=== PATIENT | female | born 1995 | race Caucasian/White ===

== ENCOUNTER 2023-07-18 05:28 | Inpatient (IN) ==
--- NOTE | 2023-07-07 16:00 | Anesthesiology Consultation ---
Date of Service July 07, 2023 Assessment & Plan (1) Encounter for pre-operative examination: Infectious disease screening: Per assessment on 07/07/23: No known infectious disease contacts or current infectious disease symptoms. Patient was Covid positive 04/26/23 (home test)- congestion, resolved. Pt can proceed as scheduled without additional preop Covid testing or additional Covid contact precautions per protocol. Chart Review Chart Review: entry level programmer initiated History Surgery Operation Date: 07/18/23 07:30 Proposed Procedures p Section in LD (Delivery of Baby Through Abdominal Incision) - Michelle Davila MD, FACOG Height/Weight Height: 5 ft 5 in Weight: 124.738 kg Allergies Allergy/AdvReac Type Severity Reaction Status Date / Time No Known Allergies Allergy Verified 07/07/23 15:32 Medications Home Medications Medication Instructions Recorded Confirmed Last Taken tnevuduj-owg-Jh-FA 1 dose PO QPM 12/16/22 07/07/23 Unknown [] Breast Pump #1 ea 05/20/23 07/03/23 Unknown ferrous sulfate 325 mg (65 mg 325 mg PO QAM 05/27/23 07/07/23 Unknown iron) tablet (FeroSul) calcium carbonate 300 mg (750 mg) 300 mg PO DAILY PRN gerd. 07/07/23 07/07/23 Unknown chewable tablet (Tums) Past Medical History Medical History Anxiety and depression hx GERD (gastroesophageal reflux disease) History of COVID-19 04/26/23 (home test)- congestion, resolved Human papilloma virus MRSA (methicillin resistant Staphylococcus aureus) hx Past Family History Family History Aunt Breast cancer Mother Hypertension A-fib Brother Hypertension Pacemaker Father A-fib Denies family history of Ovarian cancer Colorectal cancer Past Surgical History Surgical History History of esophagogastroduodenoscopy (EGD) S/P section S/P cholecystectomy S/P dilatation and curettage S/P sinus surgery S/P tonsillectomy and adenoidectomy S/P wisdom tooth extraction Social History Smoking Status: Never smoker Do You Dip or Chew Tobacco: No Hx Alcohol Use: No Hx Substance Use: No substance use type: does not use
--- NOTE | 2023-07-17 12:12 | History & Physical Report ---
Date of Service July 17, 2023 Assessment & Plan (1) Previous delivery affecting , antepartum: (2) Two vessel cord: Plan Will be admitted on 07/17 for planned repeat c/s. Declines tubal. Aware of preop, postop instructions and course. Answered questions to best of my ability. Consent form reviewed and signed. Labs on admission. IV and Abx ordered. Will need MMR PP. History of Present Illness Chief Complaint: planned c/s Primary Care Provider: Desi Zamudio 27yo at 39 0/7 wks ega on day of her admission for planned repeat c/s with prior history of c/s. Denies rom, vb. +FM. No ctx. pyelectasis was noted initially but resolved at 30wks. PNC c/b 1. obesity 2. 2VC 3. Prior c/s 4. Needs MMR PP PNL RH pos,Rubella, equiv, GBS neg OBH: c/sx1, sab x 1 GYNH: nl paps no stds Allergies Allergy/AdvReac Type Severity Reaction Status Date / Time No Known Allergies Allergy Verified 07/17/23 09:53 Home Medications Medication Instructions Recorded Confirmed Type lplvqgun-[id number]-Ld-FA 1 dose PO QPM 12/16/22 07/17/23 History [] Breast Pump #1 ea 05/20/23 07/17/23 Rx ferrous sulfate 325 mg (65 mg 325 mg PO QAM 05/27/23 07/17/23 History iron) tablet (FeroSul) calcium carbonate 300 mg (750 mg) 300 mg PO DAILY PRN gerd. 07/07/23 07/17/23 History chewable tablet (Tums) Patient History Medical History Anxiety and depression hx GERD (gastroesophageal reflux disease) History of COVID-19 04/26/23 (home test)- congestion, resolved Human papilloma virus MRSA (methicillin resistant Staphylococcus aureus) hx Surgical History History of esophagogastroduodenoscopy (EGD) S/P section S/P cholecystectomy S/P dilatation and curettage S/P sinus surgery S/P tonsillectomy and adenoidectomy S/P wisdom tooth extraction Family History Aunt Breast cancer Mother Hypertension A-fib Brother Hypertension Pacemaker Father A-fib Denies family history of Ovarian cancer Colorectal cancer Social History Smoking Status: Never smoker Second Hand Exposure: No; Do You Dip or Chew Tobacco: No; Hx Alcohol Use: No Hx Substance Use: No Preferred Language: Sami Communication Ability: Effective Maintenance Tech Required: No Beliefs That Will Affect Care: None marital status: Single marital status details: foyasmine Vasquez (35) [phone] Current Living Situation: Family and Significant Other Current Living Situation Comment: lives with fob, son, dogs, cat-son & fob changing litter current occupational status: employed 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
[2023-07-18] MEDS: LACTATED RINGER'S 1,000 ML IV SCH (05:50)
[2023-07-18 06:27] LABS: Basophils # (auto) 0.03 K/uL (0.00-0.20); Basophils % (auto) 0.4 %; Eosinophils # (auto) 0.25 K/uL (0.00-0.50); Eosinophils % (auto) 3.1 %; Immature Granulocytes # (auto) 0.03 K/uL (0.01-0.20); Immature Granulocytes % (auto) 0.4 %; Lymphocytes # (auto) 1.85 K/uL (1.20-3.40); Lymphocytes % (auto) 22.7 %; Mean Corpuscular Hemoglobin 29.8 pg (25.0-34.0); Mean Corpuscular Hgb Conc 33.3 g/dL (32.0-36.0); Mean Corpuscular Volume 89.3 fL (80.0-100.0); Mean Platelet Volume 9.9 fL (9.4-12.4); Monocytes # (auto) 0.59 K/uL (0.11-0.59); Monocytes % (auto) 7.2 %; Neutrophils # (auto) 5.39 K/uL (1.40-6.50); Neutrophils % (auto) 66.2 %; Platelet Count 206 K/uL (130-400); RDW Coefficient of Variation 13.2 % (11.5-14.5); RDW Standard Deviation 42.9 fL (36.4-46.3); Red Blood Count 4.03 M/uL (4.20-5.40); White Blood Count 8.14 K/ul (4.8-10.8)
[2023-07-18] MEDS ORDERED: SODIUM CHLORIDE 0.9% 250 ML IV PRN (06:43)
[2023-07-18] MEDS ORDERED: PHENYLEPHRINE HCL 10 MG/ML VIAL ONE (07:00)
[2023-07-18] MEDS ORDERED: ONDANSETRON INJ 2 MG/ML 2 ML VIAL ONE (07:00)
[2023-07-18] MEDS ORDERED: fentaNYL citrate PF 100 MCG/2 ML VIAL ONE (07:00)
[2023-07-18] MEDS ORDERED: MoRPHine SULFATE PF 1 MG/ML 10 ML AMP/VIAL ONE (07:00)
[2023-07-18] MEDS ORDERED: KETOROLAC 30 MG/ML VIAL ONE (07:00)
[2023-07-18] MEDS ORDERED: OXYTOCIN 10 UNITS/ML VIAL ONE (07:00)
[2023-07-18] MEDS: ceFAZolin 3,000 MG/72.5 ML BAG IV SCH (07:22)
--- NOTE | 2023-07-18 07:23 | History & Physical Bridge Note ---
Date of Service July 18, 2023 History & Physical Bridge Note I have examined the patient, reviewed the History & Physical and in the interval since the performance of the History & Physical I have noted the following changes of clinical significance: no changes noted
[2023-07-18] MEDS: CITRIC ACID/SODIUM CITRATE 15 ML UDC PO SCH (07:27)
[2023-07-18] MEDS ORDERED: NALOXONE HCL 1 MG in SODIUM CHLORIDE 0.9% 1,000 ML IV PRN (08:00)
[2023-07-18] MEDS ORDERED: NALOXONE HCL 0.4 MG/1 ML VIAL/CARP IV PRN (08:00)
[2023-07-18] MEDS ORDERED: MoRPHine SULFATE PF 1 MG/ML 10 ML AMP/VIAL INT SPINAL ONE (08:00)
[2023-07-18] MEDS ORDERED: ePHEDrine sulfate 50 MG/ML AMP IV PRN (08:00)
[2023-07-18] MEDS ORDERED: NALBUPHINE HCL 5 MG in SYRINGE 0 ML IV PRN (08:00)
[2023-07-18] MEDS ORDERED: diphenhydrAMINE 50 MG/ML VIAL IV PRN (08:00)
[2023-07-18] MEDS ORDERED: LACTATED RINGER'S 500 ML IV PRN (08:00)
[2023-07-18] MEDS ORDERED: NALOXONE HCL 0.08 MG in SYRINGE 1.8 ML IV PRN (08:00)
[2023-07-18] MEDS ORDERED: DC INTRASPINAL MORPHINE SCH (08:00)
[2023-07-18] MEDS ORDERED: NO NARCOTICS OR SEDATIVES SCH (08:00)
[2023-07-18] MEDS ORDERED: SODIUM CHLORIDE 0.9% 1,000 ML IV SCH (08:00)
[2023-07-18] MEDS ORDERED: HYDROmorphone INJ 0.5 MG/0.5 ML SYR IV PRN (08:00)
[2023-07-18] MEDS ORDERED: PROMETHAZINE HCL 6.25 MG in SODIUM CHLORIDE 0.9% 50 ML IV PRN (08:00)
[2023-07-18] MEDS ORDERED: ACETAMINOPHEN 1,000 MG/100 ML VIAL IV PRN (08:00)
[2023-07-18] MEDS ORDERED: ePHEDrine sulfate 50 MG/5 ML SYR ONE (08:03)
[2023-07-18] MEDS: CARBOPROST TROMETHAMINE 250 MCG/ML AMPUL IM ONE (08:10)
[2023-07-18] MEDS ORDERED: CARBOPROST TROMETHAMINE 250 MCG/ML AMPUL ONE (08:11)
--- NOTE | 2023-07-18 08:39 | Operative Report ---
PG Post Operative Report Pre & Post Diagnosis Operation Date: 07/18/23 07:30 Pre-Op Diagnosis: Previous Section, Desires Repeat section 39 weeks EGA Two Vessel Cord Obesity Post-Op Diagnosis: Previous Section, Desires Repeat section 39 weeks EGA Two Vessel Cord Obesity I identified the patient and participated in the time-out.: Yes Procedure Operation Date: 07/18/23 07:30 Actual Procedures p Repeat Low Transverse Section in LD (Delivery of Baby Through Abdominal Incision); Live female child at 0804(Bilateral) - Michelle Davila MD, FACOG Surgeon Michelle Davila MD, FACOG Veterinary Laboratory Technician Beata Estimated Blood Loss 600 Findings Consistent with Post-Op Diagnosis (viable female infant, apgars pending. omental adhesions encountered. Normal uterus and normal bilateral tubes and ovaries. ) Fluids 1200 Specimens cord blood Drains alarcon Anesthesia Type Spinal Complications none Disposition Accompanied Patient To Recovery: No Disposition: L&D Indications 27yo at 39wks for planned repeat c/s. Description of Procedure The patient was taken to the operating room and identified. After adequate anesthesia was obtained, she was placed in the supine position with a leftward tilt on the operating table and prepped and draped in the usual sterile fashion. A alarcon catheter had already been placed. The knife was used to create a Pfannensteil skin incision that was carried down to the underlying layer of fasc ia. The fascia was nicked in the midline and this opening was extended laterally using Oshea scissors. Rolanda clamps were placed on the superior and inferior aspect of the fascial incision tenting it upward and the underlying rectus muscles were dissected off the overlying fascia both sharply and bluntly using Oshea scissors. The rectus muscles were bluntly in the midline. The peritoneal cavity was bluntly entered into. This opening was stretched. The bladder blade was placed. The vesicouterine peritoneum was elevated and opened up into and the bladder flap was created digitally and bladder blade was replaced. The knife was used to create a hysterotomy and this opening was stretched. The operators hand was placed through the hysterotomy and the bladder blade was removed. The head was elevated and flexed and with fundal pressure the head was delivered. The shoulders and body were rapidly delivered. The cord was clamped and cut and the 's mouth and nares were bulb suction. The infant was handed off to the awaiting pediatricians. Cord blood was obtained. The placenta was manually expressed. The uterus was exteriorized and cleared of all clots and debris. Dilute IV Pitocin was begun. The uterine tone was improving . The hysterotomy was closed in a running interlocking fashion using 0 Vicryl followed by a second imbricating layer of 0 Vicryl. Small bleeding site at midpoint of hysterotomy reapproximated with 2-0 vicryl in figure of eight fashion. The hysterotomy was hemostatic. The pelvis was irrigated. Still some lack of tone midbody and after bp noted, vial of hemabate injected IM into uterus and tone improved. The uterus was returned to the abdomen. The gutters were cleared of all clots and debris. The hysterotomy was reinspected and noted to be hemostatic. The fascia was then closed in running fashion using 0 Vicryl. The subcutaneous fat was copiously irrigated and reapproximated using 2-0 chromic. The skin was closed in a subcuticular fashion using 4-0 monocryl. At this point the procedure was terminated. The patient was transferred to the recovery room in stable condition. All sponge, lap and needle counts are correct x2. I attest to the content of the Intraoperative Record and any orders documented therein. Any exceptions are noted below. OB Procedure Charges 80519
--- NOTE | 2023-07-18 09:36 | Anesthesiology Progress Note ---
Date of Service July 18, 2023 Anesthesia Post Procedure Vital Signs Vital Signs: Temp Pulse Resp BP Pulse Ox 07/18/23 09:34 109 H 98/54 L 07/18/23 09:33 106 H 96 07/18/23 09:30 111 H 93 07/18/23 09:28 110 H 107/57 L 96 07/18/23 09:24 106 H 94 07/18/23 09:23 108 H 95 07/18/23 09:18 94 07/18/23 09:18 112 H 07/18/23 09:18 112 H 85/59 L 07/18/23 09:15 115 H 94 07/18/23 09:13 114 H 94 07/18/23 09:04 110 H 105/77 07/18/23 09:01 107 H 95 07/18/23 09:00 110 H 92 07/18/23 08:56 110 H 95 07/18/23 08:54 107 H 115/58 L 07/18/23 08:52 100 H 93 07/18/23 08:51 99 H 94 07/18/23 08:46 109 H 96 07/18/23 08:44 104 H 93 07/18/23 08:42 106 H 119/58 L 07/18/23 08:41 107 H 96 07/18/23 05:47 98.2 F 20 07/18/23 05:42 114 H 125/79 Transfer of Care Handoff Completed per policy Notes Mental Status: alert / awake / arousable and participated in evaluation Patient Amnestic to Procedure: No Nausea / Vomiting: adequately controlled Pain: adequately controlled Airway Patency, RR, SpO2: stable & adequate BP & HR: stable & adequate Hydration State: stable & adequate Neuraxial Anesthesia: was administered and sensory block is resolving Anesthetic Complications: no major complications apparent and Pt Satisfied with anesthetic care
[2023-07-18] MEDS ORDERED: LACTATED RINGER'S 1,000 ML IV SCH (09:52)
[2023-07-18] MEDS ORDERED: BENZOCAINE 20% SPRY 85 APPLN/85 GM CAN EXT PRN (09:52)
[2023-07-18] MEDS ORDERED: HYDROCORTISONE ACETATE 25 MG SUPP PR PRN (09:52)
[2023-07-18] MEDS ORDERED: SENNA 8.6 MG TAB PO PRN (09:52)
[2023-07-18] MEDS ORDERED: DIPHTHER/TETAN/PERTUS Vaccine (Tdap, Adol/Adult) 0.5mL IM ONE (09:52)
[2023-07-18] MEDS: OXYTOCIN 20 UNITS/LR 1,002 ML IV SCH (12:04)
[2023-07-18] MEDS: ONDANSETRON INJ 2 MG/ML 2 ML VIAL IV PRN (12:44)
[2023-07-18] MEDS: ACETAMINOPHEN 1,000 MG/100 ML VIAL IV PRN (12:49)
[2023-07-18] MEDS: SIMETHICONE 80 MG CHEW PO SCH (20:29)
[2023-07-18] MEDS: DOCUSATE SODIUM 100 MG CAP PO SCH (20:33)
[2023-07-18] MEDS: KETOROLAC 30 MG/ML VIAL IV PRN (20:33)
[2023-07-19] MEDS ORDERED: MEPERIDINE HCL 50 MG/ML CARP IV PRN (02:01)
[2023-07-19] MEDS ORDERED: diphenhydrAMINE Capsule 25 MG CAP PO PRN (02:01)
[2023-07-19] MEDS ORDERED: ONDANSETRON INJ 2 MG/ML 2 ML VIAL IV PRN (02:01)
[2023-07-19] MEDS ORDERED: KETOROLAC 30 MG/ML VIAL IV PRN (02:01)
[2023-07-19] MEDS ORDERED: PROMETHAZINE HCL 25 MG in SODIUM CHLORIDE 0.9% 50 ML IV PRN (02:01)
[2023-07-19] MEDS ORDERED: diphenhydrAMINE 50 MG/ML VIAL IV PRN (02:01)
[2023-07-19] MEDS: IBUPROFEN 600 MG TAB PO PRN (04:11)
[2023-07-19] MEDS: oxyCODONE/ACETAMINOPHEN 5mg/325mg TAB PO PRN (05:08)
--- NOTE | 2023-07-19 05:54 | Obstetrical Progress Note ---
Date of Service July 19, 2023 Assessment & Plan (1) S/P section: Plan 27 yo , status post on 07/18/23 - Pt doing well clinically. Feels well today. Eating well, voiding well, ambulating well. Pain well controlled with PRN pain meds. - Routine care -- OOB, ambulation, diet progression as tolerated Vital Signs reviewed and WNL. (Tmax at 37.0) Hemoglobin Reviewed. 12.0 (07/17). No s/s of anemia: no dyspnea, no tachycardia, no paleness, no weakness. Blood Type: AB+, GBS-, Rubella Equivocal Talked to mom about getting MMR shot to give her herself and protection against Rubella before receives own shot. Patient was amenable to the vaccine. Encourage ambulation, monitor and control pain with Motrin PRN, resume regular diet, monitor lochia. Breast feeding encouraged. After discharge will have 6 week follow-up with Dr. Peña. Subjective Ambulation: limited ambulation Voiding: no voiding problems (Meeks removed half an hour ago) Passing Gas:: Yes Diet Tolerance:: regular diet Lochia:: Moderate Feeding Type:: breast feeding Current Pain Level(1-10): 4 (cramping pain while walking, some incisional site pain) Constitutional: no fever, no chills or no fatigue Ear, Nose, Mouth, Throat: no nasal congestion, no nasal discharge or no sore throat Respiratory: no cough, no chest congestion or no dyspnea Cardiovascular: no chest pain or no palpitations Gastrointestinal: + nausea (some nausea yesterday, secondary to acid reflux per pt); no abdominal pain or no vomiting Genitourinary (female): no dysuria Neurologic: no tingling, no numbness or no headache(s) Physical Exam Constitutional WD/WN, vitals as above Respiratory normal respiratory effort, lungs clear to auscultation Cardiovascular RRR, no murmur, no edema Extremities: normal capillary refill and + pedal edema; no calf tenderness Gastrointestinal (Abdomen) Inspection/Auscultation: abdomen normal to inspection, normal bowel sounds and + abdominal surgical incision (intact, mild redness, very little swelling) Percussion/Palpation: + abdomen tender (mild to moderately tender w/ palpation of incision) Psychiatric A+Ox3, euthymic affect Results & Data Vital Signs (Past 12 Hours) Vital Signs Temp Pulse Resp BP Pulse Ox O2 Del Method 07/19/23 04:08 36.8 C 92 H 14 117/71 96 Room Air 07/19/23 02:00 14 96 07/19/23 01:00 12 94 07/19/23 00:00 16 95 07/18/23 23:45 37.0 C 100 H 14 100/65 94 Room Air 07/18/23 23:00 16 96 07/18/23 22:08 16 99 07/18/23 21:00 14 96 07/18/23 20:05 37.0 C 90 16 108/70 96 Room Air 07/18/23 20:00 18 98 07/18/23 19:00 16 97 07/18/23 18:06 16 98
[2023-07-19] MEDS: PRENATAL VITAMIN 1 TAB PO SCH (07:59)
[2023-07-19] MEDS: FERROUS SULFATE 325 MG TAB PO SCH (07:59)
[2023-07-19 08:29] LABS: Basophils # (auto) 0.03 K/uL (0.00-0.20); Basophils % (auto) 0.4 %; Eosinophils # (auto) 0.12 K/uL (0.00-0.50); Eosinophils % (auto) 1.6 %; Hematocrit (blood only) 33.1 % (37.0-47.0); Hemoglobin 10.7 g/dl (12.0-16.0); Immature Granulocytes # (auto) 0.04 K/uL (0.01-0.20); Immature Granulocytes % (auto) 0.5 %; Lymphocytes # (auto) 1.32 K/uL (1.20-3.40); Lymphocytes % (auto) 17.2 %; Mean Corpuscular Hemoglobin 29.2 pg (25.0-34.0); Mean Corpuscular Hgb Conc 32.3 g/dL (32.0-36.0); Mean Corpuscular Volume 90.4 fL (80.0-100.0); Mean Platelet Volume 9.9 fL (9.4-12.4); Monocytes # (auto) 0.53 K/uL (0.11-0.59); Monocytes % (auto) 6.9 %; Neutrophils # (auto) 5.62 K/uL (1.40-6.50); Neutrophils % (auto) 73.4 %; Platelet Count 187 K/uL (130-400); RDW Coefficient of Variation 13.5 % (11.5-14.5); RDW Standard Deviation 44.6 fL (36.4-46.3); Red Blood Count 3.66 M/uL (4.20-5.40); White Blood Count 7.66 K/ul (4.8-10.8)
[2023-07-19] MEDS: PANTOprazole 40 MG TAB PO SCH (12:10)
[2023-07-19] MEDS: bisacodyL 5 MG TABEC PO SCH (21:22)
[2023-07-20 07:07] LABS: Hematocrit (blood only) 32.9 % (37.0-47.0)
[2023-07-20] MEDS: MAGNESIUM HYDROXIDE SUSP 30 ML UDC PO PRN (07:59)
[2023-07-20] MEDS: MEASLES, MUMPS & RUBELLA VIRUS VACCINE (MMR) VIAL SQ ONE (07:59)
--- NOTE | 2023-07-20 08:25 | Obstetrical Progress Note ---
Date of Service July 20, 2023 Assessment & Plan (1) care following delivery: Plan stable, routine care. ready for dc home. instructions reviewed, plan 6wk followup. needs to d/w pcp her use of protonix. she was given prior to by them. enc her to use scds in bed. breast, mmr given, rh pos. Day #:: 2 Subjective Ambulation: ambulating normally Voiding: no voiding problems Passing Gas:: Yes Diet Tolerance:: regular diet Lochia:: Small Feeding Type:: breast feeding pumping now as well. doing well. pain control adequate, no bleeding issues, no n/v. scds not on, pt says were "not put on all night", advised pt that should always have on at rest. Constitutional: + as per Subjective / HPI Physical Exam Constitutional WD/WN, vitals as above Respiratory normal respiratory effort, lungs clear to auscultation Cardiovascular Rate/Rhythm: regular rate and regular rhythm Gastrointestinal (Abdomen) Inspection/Auscultation: abdomen normal to inspection and + abdominal surgical incision (c/d/i) Percussion/Palpation: abdomen soft Fundus firm 2cm down Musculoskeletal nt calves tr edema Neurologic grossly normal Psychiatric A+Ox3, euthymic affect Results & Data Vital Signs (Past 12 Hours) Vital Signs Temp Pulse Resp BP Pulse Ox O2 Del Method 07/20/23 00:04 98.2 F 83 18 113/70 Room Air 07/19/23 20:41 98.6 F 90 16 116/74 98 Room Air
[2023-07-20] MEDS ORDERED: bisacodyL 10 MG SUPP PR PRN (08:34)
--- NOTE | 2023-07-23 10:26 | Discharge Summary ---
Date of Service day of admission 07/18/23 day of dc 07/20/23 Admission HPI Per Admitting Provider 27yo at 39 0/7 wks ega on day of her admission for planned repeat c/s with prior history of c/s. Denies rom, vb. +FM. No ctx. pyelectasis was noted initially but resolved at 30wks. PNC c/b 1. obesity 2. 2VC 3. Prior c/s 4. Needs MMR PP PNL RH pos,Rubella, equiv, GBS neg OBH: c/sx1, sab x 1 GYNH: nl paps no stds Discharge Data Consultations 07/18/23 05:40 Consult Anesthesiology Stat Procedures Performed Operation Date: 07/18/23 07:30 Actual Procedures p Repeat Low Transverse Section in LD (Delivery of Baby Through Abdominal Incision); Live female child at 0804(Bilateral) - Michelle Davila MD, [facility] [place] Hospital Course (1) care following delivery: The patient underwent the above stated procedure without incident and her postoperative course and recovery was uncomplicated. On her postoperative day #2 she was tolerating a regular diet, voiding spontaneously, ambulating without problem and was using oral meds for adequate pain control. Her postoperative hemoglobin was 11.0. She was given written and verbal discharge instructions and told to followup in office at 6wks. She was given appropriate pain medicine prescriptions. Coding Level of Care Code None Diagnoses care following delivery Z39.2
== END 2023-07-20 14:12 | disposition home or self-care (01) | DRG 788 ==
LOC: 4S1 05:28 → EDSTATUS 07:30 → 4E2 16:00
DX: Z23 Encounter for immunization; O69.89X0 Labor and delivery complicated by other cord complications, not applicable or unspecified; O34.211 Maternal care for low transverse scar from previous cesarean delivery; Z3A.39 39 weeks gestation of pregnancy; Z37.0 Single live birth